=== PATIENT | female | born 1970 | race Caucasian/White ===

== ENCOUNTER 2019-10-12 09:25 | Day surgery (SDC) | payer BC ==
[2019-10-07 13:02] VITALS: BMI 45.6
[~2019-10-12 09:25] MED LIST: LACTATED RINGERS 1,000 ML IV SCH; LIDOCAINE 1% 20 ML VIAL (10MG/ML) FOR IV START INTRADERMA PRN
[2019-10-12 09:57] VITALS: TEMP 97.7
[2019-10-12] MEDS ORDERED: PROPOFOL 10 MG/ML 20 ML VIAL IV ONE (10:33)
--- NOTE | 2019-10-12 10:35 | P.GSHP ---
History of Present Illness H&P Date: 10/12/19 Chief Complaint: Screening colonoscopy This is a 49-year-old female who presents today for screening colonoscopy. Patient denies a significant GI complaints. Past Medical History Past Medical History: Atrial Fibrillation, Cancer, Hypertension, Skin Disorder, Thyroid Disorder Additional Past Medical History / Comment(s): had atrial fib 2012 -one time - no other episodes. thyroid ca- 2008 History of Any Multi-Drug Resistant Organisms: None Reported Past Surgical History: Cholecystectomy, Hysterectomy Additional Past Surgical History / Comment(s): hysterectomy. thyroidectomy 2009-hx ca Past Anesthesia/Blood Transfusion Reactions: Postoperative Nausea & Vomiting (PONV) Smoking Status: Never smoker - Past Family History Mother Family Medical History: No Reported History Medications and Allergies Home Medications Medication Instructions Recorded Confirmed Type Cetirizine HCl [Zyrtec] 10 mg PO DAILY 10/12/14 10/07/19 History Cholecalciferol [Vitamin D3] 10,000 unit PO DAILY 10/12/14 10/07/19 History Lisinopril [Zestril] 10 mg PO DAILY 10/12/14 10/07/19 History Liothyronine Sodium [Cytomel] 5 mcg PO DAILY 10/07/19 10/07/19 History Levothyroxine Sodium [Levoxyl] 150 mcg PO DAILY 10/12/19 10/12/19 History Allergies Allergy/AdvReac Type Severity Reaction Status Date / Time codeine Allergy sob Verified 10/07/19 12:19 morphine Allergy Nausea & Verified 10/07/19 12:19 Vomiting Penicillins Allergy sob Verified 10/07/19 12:19 Sulfa (Sulfonamide Allergy Rash/Hives Verified 10/07/19 12:19 Antibiotics) Surgical - Exam Vital Signs Temp Pulse Resp BP Pulse Ox 97.7 F 78 16 163/87 95 10/12/19 09:56 10/12/19 09:56 10/12/19 09:56 10/12/19 09:56 10/12/19 09:56 - General well developed, well nourished, no distress - Eyes PERRL - ENT normal pinna - Neck no masses - Respiratory normal expansion - Cardiovascular Rhythm: regular - Abdomen Abdomen: soft, non tender Assessment and Plan Assessment: We'll perform screening colonoscopy
--- NOTE | 2019-10-12 10:48 | P.OP ---
Date of Procedure: 10/12/19 Preoperative Diagnosis: Screening colonoscopy Postoperative Diagnosis: Normal colon Procedure(s) Performed: Colonoscopy Anesthesia: MAC Surgeon: Musa Claros Pathology: none sent Condition: stable Disposition: PACU Description of Procedure: N PROCEDURE: The patient was placed on the endoscopy table in the lateral position. Digital rectal examination was performed which revealed no abnormalities. . Flexible colonoscope was then placed in the patient's anus and passed throughout the entire colon. The ileocecal valve was visualized. The cecum, ascending, transverse, descending and sigmoid colon were normal. The rectum was normal as well. There were no masses, polyps or diverticula noted in the entire colon. SUMMARY OF FINDINGS: Normal colonoscopy.
[2019-10-12 11:09] VITALS: BP 170/83; PULSE 78; RESP 18
== END 2019-10-12 11:25 | disposition home or self-care (01) ==
LOC: ORWHC2ENDO 09:25
PROVIDERS: ATTEND Surgery
DX: Z12.11 Encounter for screening for malignant neoplasm of colon (principal); I10 Essential (primary) hypertension; I48.91 Unspecified atrial fibrillation; E89.0 Postprocedural hypothyroidism; Z86.010 Personal history of colon polyps; Z88.0 Allergy status to penicillin; Z88.2 Allergy status to sulfonamides; Z88.5 Allergy status to narcotic agent; Z79.890 Hormone replacement therapy; Z79.899 Other long term (current) drug therapy; Z90.710 Acquired absence of both cervix and uterus; Z90.49 Acquired absence of other specified parts of digestive tract; Z85.850 Personal history of malignant neoplasm of thyroid
CPT/HCPCS: J2704; G0105